=== PATIENT | female | born 1940 | race Caucasian/White ===

== ENCOUNTER 2017-07-10 16:23 | Inpatient (IN) | payer BC, OTHER ==
[~2017-07-10] VITALS: Ht 162.6 cm; Wt 64.0 kg
[2017-07-10 23:10] VITALS: BP 155/80
--- NOTE | 2017-07-10 23:50 | NUR ---
PRE-ADMISSION NOTE VS BP-155/80 T-97.9 P-72 R-16 PA-0/10 SpO2 AT 98% IN RA. PATIENT ALERT AND ORIENTED X 3. AMBULATORY AND GAIT IS STEADY. SPEECH IS CLEAR AND ABLE TO ANSWER QUESTIONS APPROPRIATELY . PATIENT IS ALLERGIC TO NIACIN. PATIENT DENIES SEIZURE HISTORY. SHE STATES SHE'S HERE FOR ALCOHOL AND OPIOID DEPENDENCE. WILL CONTINUE ADMISSION ON 3RD FLOOR.
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
[2017-07-11] MEDS ORDERED: LOPERAMIDE HCL 2 MG CAPSULE PO PRN ×2 (00:30)
[2017-07-11] MEDS ORDERED: MAGNESIUM HYDROXIDE 30 ML LIQUID UDC PO PRN (00:30)
[2017-07-11] MEDS ORDERED: ONDANSETRON ODT 4 MG TAB.RAPDIS SL PRN (00:30)
[2017-07-11] MEDS ORDERED: LORAZEPAM 2 MG/1 ML VIAL IM PRN (00:30)
[2017-07-11] MEDS ORDERED: MIRALAX 17 GM POWD.PACK PO PRN (00:30)
[2017-07-11] MEDS ORDERED: MAG HYDROX/AL HYDROX/SIMETH 30 ML LIQUID UDC PO PRN (00:30)
[2017-07-11] MEDS ORDERED: ONDANSETRON 4 MG/2 ML VIAL IM PRN (00:30)
[2017-07-11] MEDS ORDERED: THIAMINE HCL 200 MG/2 ML VIAL IM ONE (00:30)
[2017-07-11] MEDS ORDERED: DICYCLOMINE HCL 20 MG TABLET PO PRN (00:30)
[2017-07-11] MEDS ORDERED: LORAZEPAM 1 MG TABLET PO PRN ×2 (00:30)
[2017-07-11] MEDS: METHOCARBAMOL 750 MG TABLET PO PRN (01:23)
[2017-07-11] MEDS: diphenhydrAMINE 50 MG CAPSULE PO PRN (01:23)
--- NOTE | 2017-07-11 01:23 | NUR ---
PRN ROBAXIN AND BENADRYL ADMINISTRATION PATIENT C/O BACK ACHE 10/28 AND REQUESTS FOR SLEEP AID. WILL MONITOR FOR EFFECTIVENESS
[2017-07-11] MEDS ORDERED: THIAMINE HCL 200 MG/2 ML VIAL ONE (01:25)
[2017-07-11] MEDS ORDERED: diphenhydrAMINE 50 MG CAPSULE ONE (01:25)
[2017-07-11] MEDS ORDERED: METHOCARBAMOL 750 MG TABLET ONE (01:37)
[2017-07-11] MEDS ORDERED: MELA5TAB PO (01:57)
[2017-07-11] MEDS ORDERED: ESCI20TA37 PO (01:57)
[2017-07-11] MEDS ORDERED: HYDR-3974 PO (01:57)
[2017-07-11] MEDS ORDERED: LORA10TA7 PO (01:57)
[2017-07-11] MEDS ORDERED: ALBU8.5H8 IH (01:57)
[2017-07-11] MEDS ORDERED: NICO4GUM9 BC (01:57)
[2017-07-11] MEDS ORDERED: NICO1PAT45 TD (01:57)
[2017-07-11] MEDS ORDERED: LURA40TA PO (01:57)
[2017-07-11] MEDS ORDERED: TOPI100T38 PO (01:57)
[2017-07-11] MEDS ORDERED: PANT40TA4 PO (01:57)
[2017-07-11 02:14] LABS: BASOPHILS % (AUTO) 0.9 % (0.0-2.0); EOSINOPHILS # (AUTO) 0.2 K/uL (0.0-0.7); EOSINOPHILS % (AUTO) 2.9 % (0.0-7.0); HEMATOCRIT 40.7 % (31.2-41.9); HEMOGLOBIN 14.1 g/dL (10.9-14.3); LYMPHOCYTES # (AUTO) 1.9 K/uL (20.0-40.0); LYMPHOCYTES % (AUTO) 37.3 % (20.5-51.5); MEAN CORPUSCULAR HEMOGLOBIN 32.7 uug (24.7-32.8); MEAN CORPUSCULAR HGB CONC 35 g/dL (32.3-35.6); MEAN CORPUSCULAR VOLUME 94.2 fL (75.5-95.3); MONOCYTES # (AUTO) 0.3 K/uL (2.0-10.0); MONOCYTES % (AUTO) 4.9 % (0.0-11.0); NEUTROPHILS # (AUTO) 2.8 K/uL (1.8-8.9); PLATELET COUNT (AUTO) 233 K/uL (179-408); RED BLOOD CELL COUNT(AUTO) 4.32 MIL/uL (3.63-4.92); WHITE BLOOD COUNT (AUTO) 5.2 K/uL (3.8-11.8)
--- NOTE | 2017-07-11 02:23 | NUR ---
GRAHAM MORA AND LEYLA RE-ASSESSMENT PATIENT IN BED ASLEEP. RESPIRATION EVEN AND UNLABORED. NO FACIAL GRIMACING. WILL CONTINUE TO MONITOR
[2017-07-11 02:34] LABS: ETHANOL 61 MG/DL (0-0)
[2017-07-11 03:04] LABS: ALANINE AMINOTRANSFERASE 15 U/L (14-59); ALKALINE PHOSPHATASE 55 U/L (50-136); AMYLASE 56 U/L (25-115); ASPARTATE AMINOTRANSFERASE 16 U/L (15-37); BILIRUBIN,TOTAL 0.2 mg/dL (0.2-1.0); CARBON DIOXIDE 22 mmol/L (21-32); CHLORIDE 101 mmol/L (98-107); CREATININE 0.9 mg/dL (0.6-1.3); GLUCOSE 108 mg/dL (74-106); LIPASE 160 U/L (73-393); MAGNESIUM 2.1 mg/dL (1.8-2.4); POTASSIUM 3.5 mmol/L (3.5-5.1); TOTAL PROTEIN, SERUM 7.3 g/dL (6.4-8.2); UREA NITROGEN, BLOOD 9 mg/dL (7-18)
[2017-07-11 03:17] LABS: THYROID STIMULATING HORMONE 2.814 mIU/mL (0.358-3.740)
[2017-07-11 03:27] LABS: *AMPHETAMINE, URINE NEGATIVE (NEGATIVE); *BARBITURATE, URINE NEGATIVE (NEGATIVE); *CANNABINOID, URINE NEGATIVE (NEGATIVE); *COCCAINE, URINE NEGATIVE (NEGATIVE); *OPIATE, URINE POSITIVE (NEGATIVE); *PHENCYCLIDINE SCREEN,URINE NEGATIVE (NEGATIVE)
[2017-07-11 04:00] VITALS: BP 137/68
--- NOTE | 2017-07-11 07:28 | NUR ---
END OF SHIFT NOTE PATIENT SLEPT 3 HOURS. FLUID INTAKE OF 296 ML. VOIDED X 2 . NO BM. PATIENT IS A 77 YEAR OLD FEMALE NEWLY ADMITTED FOR SUPERVISED WITHDRAWAL FROM ETOH/OPIOID DEPENDENCE./ PATIENT WAS GIVEN PRN ROBAXIN AND BENADRYL AT 0123 . THIAMINE IM INJECTION GIVEN ON LEFT DELTOID. LAST COWS 5 AND CIWA 4. ON FALL/SEIZURE PRECAUTION. SAFETY MEASURES IN PLACE. CALL LIGHT IN REACH. WILL CONTINUE TO MONITOR.
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
[2017-07-11 08:00] VITALS: BP 126/57
[2017-07-11] MEDS: FOLIC ACID 1 MG TABLET PO SCH (09:30)
[2017-07-11] MEDS: CLONIDINE HCL 0.1 MG TABLET PO PRN (09:30)
[2017-07-11] MEDS: HYDROXYZINE PAMOATE 25 MG CAPSULE PO PRN (09:30)
[2017-07-11] MEDS: THIAMINE HCL 100 MG TABLET PO SCH (09:30)
[2017-07-11] MEDS: MULTIVITAMINS,THERAPEUTIC TABLET PO SCH (09:30)
--- NOTE | 2017-07-11 09:30 | NUR ---
PRN Clonidine 0.1mg PO, Vistaril 25mg PO, Bentyl 20mg PO administered for irritability, chills, anxiety, and abdominal spasms respectively. Encourage client to rise from a position slowly to avoid a drop in blood pressure, to report any dizziness and to increase PO fluid intake as tolerated to facilitate detox. Will continue to monitor.
--- NOTE | 2017-07-11 09:44 | NUR ---
PRN Ativan 1mg PO administered for CIWA 6, anxiety, irritability, stomach upset, nausea and tremors felt, not observed. Call light within reach.
[2017-07-11] MEDS ORDERED: NICOTINE POLACRILEX 4 MG GUM-PK OF TEN BC PRN (10:15)
--- NOTE | 2017-07-11 10:30 | NUR ---
Reassess PRN Rivas KohlitariAngy littlejohn, client reports relief from abdominal spasms, she presents less irritable, but states, "I am still very anxious, I/m not sure I can go through this detox." Encourage client to express feelings, reinforcement is needed. Will continue to monitor.
--- NOTE | 2017-07-11 10:44 | NUR ---
Reassess PRN Ativan 1mg , CIWA 4, client continues to presents with anxious mood, she reports relief from nausea. Call light within reach.
[2017-07-11] MEDS: ESCITALOPRAM OXALATE 10 MG TABLET PO SCH (10:46)
[2017-07-11 12:00] VITALS: BP 121/80
[2017-07-11] MEDS ORDERED: BUPRENORPHINE HCL 2 MG TAB.SUBL SL PRN ×2 (12:00)
[2017-07-11] MEDS ORDERED: PANTOPRAZOLE SODIUM 40 MG TABLET.DR PO ONE (15:00)
[2017-07-11] MEDS: LORAZEPAM 1 MG TABLET PO SCH ×2 (15:45→20:22)
[2017-07-11 16:00] VITALS: BP 119/65
[2017-07-11] MEDS: TOPIRAMATE 100 MG TABLET PO SCH (16:12)
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
[2017-07-11 20:00] VITALS: BP 109/55
[2017-07-11] MEDS: MELATONIN 3 MG TABLET PO SCH (20:22)
[2017-07-11] MEDS: LATUDA 40 MG PO SCH (20:22)
[2017-07-11] MEDS ORDERED: Medication Not On Formulary EA (Melatonin 5 MG) PO SCH (21:00)
[2017-07-12] VITALS: BP 136/69
--- NOTE | 2017-07-12 | NUR ---
COWS AND CIWA DEFERRED COWS and CIWA deferred due to patient asleep; to be assessed and scored while patient is awake. Respirations are even and unlabored, 14/min. Safety measures in place, bed locked in low position, side rails up x2, call light within reach. Will continue to monitor.
--- NOTE | 2017-07-12 04:00 | NUR ---
VITALS REFUSED, COWS AND CIWA DEFERRED Patient refused vital signs. COWS and CIWA deferred due to patient asleep; to be assessed and scored while patient is awake. Respirations are even and unlabored, 14/min. Safety measures in place, bed locked in low position, side rails up x2, call light within reach. Will continue to monitor.
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
[2017-07-12 08:00] VITALS: BP 130/79
[2017-07-12] MEDS: ESCITALOPRAM OXALATE 10 MG TABLET PO SCH (08:23)
[2017-07-12] MEDS: TOPIRAMATE 100 MG TABLET PO SCH ×2 (08:23→16:07)
[2017-07-12] MEDS: LORAZEPAM 1 MG TABLET PO SCH ×3 (08:23→21:32)
[2017-07-12] MEDS: PANTOPRAZOLE SODIUM 40 MG TABLET.DR PO SCH (08:23)
[2017-07-12] MEDS: MULTIVITAMINS,THERAPEUTIC TABLET PO SCH (08:24)
[2017-07-12] MEDS: LORATADINE 10 MG TABLET PO SCH (08:24)
[2017-07-12] MEDS: THIAMINE HCL 100 MG TABLET PO SCH (08:24)
[2017-07-12] MEDS: FOLIC ACID 1 MG TABLET PO SCH (08:24)
[2017-07-12] MEDS ORDERED: TUBERCULIN,PURIF.PROT.DERIV. 5 TU/0.1 ML TEST ID ONE (09:00)
[2017-07-12] MEDS ORDERED: PATIENT MAY USE OWN MED- MD OK PO SCH ×2 (09:00)
[2017-07-12 12:00] VITALS: BP 129/68
[2017-07-12 16:00] VITALS: BP 136/83
--- NOTE | 2017-07-12 17:07 | NUR ---
Therapist prompted client about group times. Client stated she will attend groups tomorrow as she would like to rest today.
--- NOTE | 2017-07-12 18:26 | NUR ---
End of shift note; Patient is AOX4. Patient remained compliant with treatment plan and medication regime. Medications noted to be effective in reducing withdrawal symptoms. Patient's last COWS score is 3 and last CIWA is 1 at 1600. All safety measures secured. Met all needs.
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
[2017-07-12 20:00] VITALS: BP 130/56
[2017-07-12] MEDS: MELATONIN 3 MG TABLET PO SCH (21:32)
[2017-07-12] MEDS: LATUDA 40 MG PO SCH (21:33)
[2017-07-13 04:09] LABS: HEPATITIS B SURFACE AG Negative (Negative)
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
[2017-07-13 08:00] VITALS: BP 127/75
--- NOTE | 2017-07-13 09:20 | NUR ---
Therapist prompted client about group times. Client stated she is "too tired" to attend groups and wants to rest.
[2017-07-13] MEDS: THIAMINE HCL 100 MG TABLET PO SCH (09:30)
[2017-07-13] MEDS: MULTIVITAMINS,THERAPEUTIC TABLET PO SCH (09:30)
[2017-07-13] MEDS: TOPIRAMATE 100 MG TABLET PO SCH ×2 (09:30→17:00)
[2017-07-13] MEDS: LORATADINE 10 MG TABLET PO SCH (09:31)
[2017-07-13] MEDS: FOLIC ACID 1 MG TABLET PO SCH (09:31)
[2017-07-13] MEDS: PANTOPRAZOLE SODIUM 40 MG TABLET.DR PO SCH (09:32)
[2017-07-13] MEDS: LORAZEPAM 1 MG TABLET PO SCH ×3 (09:32→21:03)
[2017-07-13] MEDS: ESCITALOPRAM OXALATE 10 MG TABLET PO SCH (09:32)
[2017-07-13] MEDS: PROAIR INH PRN ×2 (09:37→15:14)
[2017-07-13] MEDS: IBUPROFEN 400 MG TABLET PO PRN ×2 (10:58→15:13)
--- NOTE | 2017-07-13 10:58 | NUR ---
PRN LIDOCAINE 5% PATCH APPLIED TO LOWER BACK, ROBAXIN 750MG PO AND MOTRIN 400MG PO GIVEN FOR BACK PAIN, WILL CONTINUE TO MONITOR AND ASSESS
[2017-07-13] MEDS: METHOCARBAMOL 750 MG TABLET PO PRN (10:59)
[2017-07-13] MEDS: LIDOCAINE 5% PATCH TD SCH (11:00)
--- NOTE | 2017-07-13 11:58 | NUR ---
PRN REASSESS PATIENT STATES THAT LIDOCAINE 5 % PATCH , MOTRIN 400MG PO AND ROBAXIN 750MG PO HAS HELPED ALLEVIATE HER BACK PAIN, WILL CONTINUE TO MONITOR CLOSELY.
[2017-07-13 12:00] VITALS: BP 152/87
[2017-07-13] MEDS: ACETAMINOPHEN 325 MG TABLET PO PRN (15:13)
[2017-07-13] MEDS: NORMAL SALINE NASAL 45 ML BOTTLE NS PRN (15:14)
--- NOTE | 2017-07-13 15:14 | NUR ---
PRN MEDS TYLENOL 650MG PO, MOTRIN 400MG PO , PROAIR INHALER AND SALINE NASAL SPRAY GIVEN TO PATIENT FOR COMPLAINTS OF BACKACHE AND NASAL / CHEST CONGESTION, WILL REASSESS.
[2017-07-13 16:00] VITALS: BP 135/74
--- NOTE | 2017-07-13 16:14 | NUR ---
PRN REASSESS MOTRIN 400MG PO AND TYLENOL 650 MG PO EFFECTIVE IN PAIN RELIEF PER PT REPORT, CONTINUE TO MONITOR
--- NOTE | 2017-07-13 18:58 | NUR ---
End of shift : Patient is a 77 year old female admitted to [facility] on 07/11/17, she is on a 5 day ativan taper to detoxify from alcohol and is tolerating it well. MD ordered Lidocaine 5% patch q12H which was applied to patients lower back today @1100. PRN Robaxin 750 mg po, Tylenol 650 mg po and Motrin 400mg po given on this shift for complaints of back pain, new order for saline nasal spray PRN. Patient complained of nasal congestion today , MD ordered Rapid flu test which is negative and Strep A/B which results are pending. Proair inhaler used twice this shift. Last COWS 3 and CIWA 4 @ 1600. All safety measures in place, bed in low locked position and padded side rails up x 2. Continue MD plan of care.
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
[2017-07-13 20:00] VITALS: BP 146/100
[2017-07-13] MEDS: LATUDA 40 MG PO SCH (21:03)
[2017-07-13] MEDS: MELATONIN 3 MG TABLET PO SCH (21:04)
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
[2017-07-14 08:00] VITALS: BP 150/81
[2017-07-14] MEDS: PANTOPRAZOLE SODIUM 40 MG TABLET.DR PO SCH (08:34)
[2017-07-14] MEDS: MULTIVITAMINS,THERAPEUTIC TABLET PO SCH (08:34)
[2017-07-14] MEDS: TOPIRAMATE 100 MG TABLET PO SCH ×2 (08:35→17:13)
[2017-07-14] MEDS: LORAZEPAM 1 MG TABLET PO SCH ×2 (08:35→20:14)
[2017-07-14] MEDS: LORATADINE 10 MG TABLET PO SCH (08:35)
[2017-07-14] MEDS: THIAMINE HCL 100 MG TABLET PO SCH (08:35)
[2017-07-14] MEDS: FOLIC ACID 1 MG TABLET PO SCH (08:35)
[2017-07-14] MEDS: ESCITALOPRAM OXALATE 10 MG TABLET PO SCH (08:35)
[2017-07-14] MEDS: NORMAL SALINE NASAL 45 ML BOTTLE NS PRN ×2 (08:36→20:13)
[2017-07-14] MEDS: LIDOCAINE 5% PATCH TD SCH (08:36)
[2017-07-14] MEDS: PROAIR INH PRN ×2 (08:36→14:10)
[2017-07-14] MEDS: NICOTINE 14 MG/24HR PATCH TD PRN ×2 (09:35→17:12)
--- NOTE | 2017-07-14 09:35 | NUR ---
PRN NICOTINE PATCH 14MG APPLIED TO LEFT UPPER ARM TO HELP DECREASE NICOTINE CRAVINGS. WILL CONTINUE TO MONITOR
[2017-07-14 12:00] VITALS: BP 139/73
--- NOTE | 2017-07-14 14:10 | NUR ---
PRN PROAIR 1 PUFF OF PROAIR INHALER FOR COMPLAINTS OF THROAT HOARSENESS , WILL RE-EVALUATE
[2017-07-14] MEDS ORDERED: BENZOCAINE/MENTH/CETYLPYRD LOZENGE MM PRN (14:30)
[2017-07-14] MEDS ORDERED: GUAIFENESIN SUGAR FREE 100 MG/5 ML UDC PO PRN (14:30)
--- NOTE | 2017-07-14 15:10 | NUR ---
REASSESS PROAIR INHALER EFFECTIVE FOR PATIENT
[2017-07-14] MEDS: HYDROXYZINE PAMOATE 25 MG CAPSULE PO PRN (15:37)
[2017-07-14] MEDS: METHOCARBAMOL 750 MG TABLET PO PRN (15:38)
--- NOTE | 2017-07-14 15:38 | NUR ---
PRN MEDS ROBAXIN 750 MG PO AND VISTARIL 25MG PO GIVEN FOR COMPLAINTS OF BACK ACHE AND RESTLESSNESS, WILL REASSESS
[2017-07-14 16:00] VITALS: BP 160/81
--- NOTE | 2017-07-14 16:38 | NUR ---
PRN REASSESS 750MG ROBAXIN PO AND 25MG VISTARIL EFFECTIVE PER PATIENT REPORT , SHE WAS ABLE TO RELAX AND BACKACHE IS LESS
[2017-07-14] MEDS: CLONIDINE HCL 0.1 MG TABLET PO PRN (17:12)
--- NOTE | 2017-07-14 17:12 | NUR ---
PRN CLONIDINE 0.1 MG PO GIVEN FOR INCREASED BP 160/81, NEW NICOTINE PATCH APPLIED, WILL CONTINUE TO MONITOR
--- NOTE | 2017-07-14 18:12 | NUR ---
REASSESS NICOTINE PATCH REMOVED WAS INCREASING PATIENTS ANXIETY, CLONIDINE EFFECTIVE FOR BP , NOW 145/78, WILL CONTINUE TO MONITOR.
--- NOTE | 2017-07-14 18:39 | NUR ---
End of shift : Patient is a 77 year old female admitted to [facility] on 07/11/17, she is on a 5 day ativan taper to detoxify from alcohol and is tolerating it well. MD ordered Lidocaine 5% patch q12H which was applied to patients lower back today @0900. PRN Robaxin 750 mg po, Vistaril 25mg po and 0.1mg clonidine po given on this shift for complaints of back pain and irritability . Strep results still pending. Proair inhaler used twice this shift. Last COWS 5 and CIWA 6 @ 1600. Patient stayed in her room most of the day refusing to attend any groups. All safety measures in place, bed in low locked position and padded side rails up x 2. Continue MD plan of care.
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
[2017-07-14 20:00] VITALS: BP 120/75
[2017-07-14] MEDS: IBUPROFEN 400 MG TABLET PO PRN (20:14)
[2017-07-14] MEDS: LATUDA 40 MG PO SCH (20:14)
[2017-07-14] MEDS: MELATONIN 3 MG TABLET PO SCH (20:14)
--- NOTE | 2017-07-14 20:30 | NUR ---
PRN MOTRIN Pt. complains of moderate headache, 6/10. PRN MOTRIN given as ordered. Safety measures in place : bed on lowest position with side rails x2 up for safety, call light within reach. Will continue to monitor closely and offer help.
--- NOTE | 2017-07-14 21:24 | NUR ---
RE-ASSESSMENT VIV Pt. is sleeping, RR=16 unlabored and even. Safety measures in place : bed on lowest position with side rails x2 up for safety, call light within reach. Will continue to monitor closely and offer help.
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
--- NOTE | 2017-07-15 07:30 | NUR ---
START OF SHIFT Endorse rcvd from ongoing nurse, client is in room, she is a/o to name, place and situation, she presents with anxious mood, flat affect, skin moist, flushed face, and stomach cramps. Client reports chills/cold, joint aches, and decreased in appetite. She denies any SI/HI. Encourage client to increase PO fluid as tolerated. Encourage client to attend group therapy for skills to maintain sober. 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 She is on 5 day Ativan taper, (Last day). Last CIWA 4/COWS 4 @ 1999. PRN Motrin 400mg Po for pain, noted effective. Client slept 8 hrs. Allergy to Niacin, Full code, regular diet. She is on seizure precautions. Bilingual Trainer rails x 2 up/padded. Call light within reach.
[2017-07-15 08:06] VITALS: BP 140/90
[2017-07-15] MEDS: TOPIRAMATE 100 MG TABLET PO SCH ×2 (08:55→17:15)
[2017-07-15] MEDS: LIDOCAINE 5% PATCH TD SCH (08:55)
[2017-07-15] MEDS: PANTOPRAZOLE SODIUM 40 MG TABLET.DR PO SCH (08:55)
[2017-07-15] MEDS: THIAMINE HCL 100 MG TABLET PO SCH (08:55)
[2017-07-15] MEDS: LORATADINE 10 MG TABLET PO SCH (08:55)
[2017-07-15] MEDS: FOLIC ACID 1 MG TABLET PO SCH (08:55)
[2017-07-15] MEDS: ESCITALOPRAM OXALATE 10 MG TABLET PO SCH (08:55)
[2017-07-15] MEDS: MULTIVITAMINS,THERAPEUTIC TABLET PO SCH (08:55)
[2017-07-15] MEDS ORDERED: LORAZEPAM 1 MG TABLET PO SCH (09:00)
[2017-07-15] MEDS ORDERED: DIPH50CA37 PO (11:29)
[2017-07-15] MEDS ORDERED: METH-406 PO (11:29)
[2017-07-15] MEDS ORDERED: IBUP-1953 PO (11:29)
[2017-07-15] MEDS ORDERED: LORA-114 PO (11:29)
[2017-07-15] MEDS ORDERED: LIDO30AD10 TD (11:29)
[2017-07-15] MEDS ORDERED: PANT40TA2 PO (11:29)
[2017-07-15] MEDS ORDERED: HYDR-3895 PO (11:29)
[2017-07-15 12:00] VITALS: BP 139/87
[2017-07-15] MEDS: ACETAMINOPHEN 325 MG TABLET PO PRN (13:59)
[2017-07-15] MEDS: METHOCARBAMOL 750 MG TABLET PO PRN (13:59)
--- NOTE | 2017-07-15 13:59 | NUR ---
PRN Robaxin 750mg PO, Tylenol 650mg PO administered for low back aches and myalgia 10/28. Call light within reach.
--- NOTE | 2017-07-15 14:59 | NUR ---
Reassess PRN Robaxin 750mg PO, Tylenol 650mg PO, client reports relief from low back aches and myalgia 06/30, but tolerable. Call light within reach.
[2017-07-15] MEDS: PROAIR INH PRN (15:24)
--- NOTE | 2017-07-15 15:24 | NUR ---
PRN Proair HFA INH 1 puff for dyspnea, Velma nasal spray NS 1 spray in each nostril for allergic rhinitis administered. Will continue to monitor. Call light within reach.
[2017-07-15] MEDS: NORMAL SALINE NASAL 45 ML BOTTLE NS PRN (15:25)
[2017-07-15 16:02] VITALS: BP 119/65
--- NOTE | 2017-07-15 16:27 | NUR ---
Reassess PRN Proair HFA INH, [place] nasal spray NS, client reports breathing easier, relief from runny nose, and congestion. Call light within reach.
--- NOTE | 2017-07-15 19:10 | NUR ---
Start of Shift Patient Received. Patient is in activities room participating in a group meeting. Patient has completed a modified Ativan taper and is set for discharge tomorrow. Per endorsement, patient was given PRN Robaxin, Tylenol, ProAir, and nasal spray with medications noted to be effective. Patient was noted to not be compliant with group therapy despite encouragement from multiple staff members. Last noted CIWA 5 and COWS 4. All needs attended to promptly. Will continue plan of care as ordered.
--- NOTE | 2017-07-15 19:21 | NUR ---
END OF SHIFT Client is in room, she is a/o to name, place and situation, she continues to present with anxious mood, flat affect. She denies any SI/HI. Adequate PO fluid intake 3193mL, void x 5. Client is not compliant with group therapy. 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 She completed 5 day Ativan taper. Last CIWA 5/ 4 @ 1600. PRN Robaxin 750mg PO, Tylenol 650mg PO administered for low back aches and myalgia 10/28, Proair HFA INH 1 puff for dyspnea, [place] nasal spray NS 1 spray in each nostril for allergic rhinitis, noted effective. Allergy to Niacin, Full code, regular diet. She is on seizure precautions. Fusing Line Inspector rails x 2 up/padded. Call light within reach.
[2017-07-15 20:21] VITALS: BP 146/94
[2017-07-15] MEDS: MELATONIN 3 MG TABLET PO SCH (20:23)
[2017-07-15] MEDS: LATUDA 40 MG PO SCH (20:23)
[2017-07-15] MEDS: diphenhydrAMINE 50 MG CAPSULE PO PRN (21:07)
--- NOTE | 2017-07-15 21:10 | NUR ---
PRN Medication Administration Patient is noted verbalizing inability of falling asleep. PRN Benadryl administered as per ordered. Will continue to monitor.
--- NOTE | 2017-07-15 22:10 | NUR ---
PRN Medication Reassessment Patient is noted in bed sleeping. Breathing even and non labored. No signs of restlessness or discomfort noted. PRN Benadryl noted to be effective. Will continue to monitor.
[2017-07-16 04:20] VITALS: BP 133/86
--- NOTE | 2017-07-16 07:17 | NUR ---
End of Shift Patient is in bed sleeping but easily aroused to verbal stimuli. Breathing even and non labored. Patient is set for discharge this morning 07/16/17 for discharge. Patient was given PRN Benadryl for sleep. Patient noted to sleep 4 hours. Patient verbalized of being "very excited to get home." Last noted CIWA 5 and COWS 4. All needs attended to promptly. Will endorse to continue plan of care as ordered.
--- NOTE | 2017-07-16 07:41 | NUR ---
START OF SHIFT Endorse rcvd from ongoing nurse, client is in room, she is a/o to name, place and situation, she presents with anxious mood, she states, "I'm going home, I miss my family very much." She denies any SI/HI. Client is being discharge this afternoon home. Encourage client to get a sponsor and attend AA meeting for skills to maintain sober. Encourage client to increase PO fluid as tolerated. 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 She completed 5 day Ativan taper. Last CIWA 4 @ 1999. PRN Benadryl 50mg PO for inability to sleep, she slept 4 hrs. Allergy to Niacin, Full code, regular diet. She is on seizure precautions. Business Development Officer rails x 2 up/padded. Call light within reach.
[2017-07-16 08:31] VITALS: BP 139/78
[2017-07-16] MEDS: TOPIRAMATE 100 MG TABLET PO SCH (09:10)
[2017-07-16] MEDS: LORATADINE 10 MG TABLET PO SCH (09:10)
[2017-07-16] MEDS: FOLIC ACID 1 MG TABLET PO SCH (09:10)
[2017-07-16] MEDS: THIAMINE HCL 100 MG TABLET PO SCH (09:10)
[2017-07-16] MEDS: PANTOPRAZOLE SODIUM 40 MG TABLET.DR PO SCH (09:11)
[2017-07-16] MEDS: LIDOCAINE 5% PATCH TD SCH (09:11)
[2017-07-16] MEDS: MULTIVITAMINS,THERAPEUTIC TABLET PO SCH (09:11)
[2017-07-16] MEDS: ESCITALOPRAM OXALATE 10 MG TABLET PO SCH (09:11)
[2017-07-16 12:00] VITALS: BP 159/88
[2017-07-16 12:12] VITALS: BP 159/88
[2017-07-16] MEDS: CLONIDINE HCL 0.1 MG TABLET PO PRN (12:12)
--- NOTE | 2017-07-16 12:12 | NUR ---
PRN Clonidine 01.mg PO, Vistaril 25mg PO administered for irritability, BP 159/88, P 91, and anxiety. Call light within reach.
[2017-07-16] MEDS: HYDROXYZINE PAMOATE 25 MG CAPSULE PO PRN (12:13)
--- NOTE | 2017-07-16 13:12 | NUR ---
Reassess PRN Clonidine 01.mg, Vistaril 25mg effective, client appears less irritable and anxious, BP 137/81, P 81. Call light within reach.
--- NOTE | 2017-07-16 13:20 | NUR ---
Discharge note Client was admitted for withdrawal from alcohol. Client completed 5 day Ativan taper. Client has a recent CIWA 4/ 4. Client VS are WNL. Client LBM was 07/16/17. Client denies any SI/HI. Client verbalized her understanding of the discharge instructions. Client has no complaints at this time. Client discharge instructions, prescriptions, medications,and all belongings returned to her. All needs addressed at this time. Client ambulated off of unit, she left facility via private car with her Chad for home.
== END 2017-07-16 13:20 | disposition home or self-care (01) | DRG 895 ==
LOC: SRC 07-11 00:01
PROVIDERS: ADMIT Internal Medicine; ATTEND Internal Medicine
PROC: HZ2ZZZZ Detoxification Services for Substance Abuse Treatment (ICD-10-PCS; principal; 2017-07-11)
PROC: HZ31ZZZ Individual Counseling for Substance Abuse Treatment, Behavioral (ICD-10-PCS; 2017-07-13)
DX: F10.230 Alcohol dependence with withdrawal, uncomplicated (principal); F31.30 Bipolar disorder, current episode depressed, mild or moderate severity, unspecified; I15.9 Secondary hypertension, unspecified; E87.1 Hypo-osmolality and hyponatremia; Y90.9 Presence of alcohol in blood, level not specified; F11.10 Opioid abuse, uncomplicated; F17.210 Nicotine dependence, cigarettes, uncomplicated; J45.20 Mild intermittent asthma, uncomplicated; Z96.651 Presence of right artificial knee joint; Z90.710 Acquired absence of both cervix and uterus; Z81.1 Family history of alcohol abuse and dependence; F41.9 Anxiety disorder, unspecified; Z79.899 Other long term (current) drug therapy; R73.9 Hyperglycemia, unspecified; M54.5 Low back pain; G89.29 Other chronic pain; K21.9 Gastro-esophageal reflux disease without esophagitis; J02.9 Acute pharyngitis, unspecified
CPT/HCPCS: 36415; 80307; 80361; 83690; 83735; 84443; 85025; 86403; 86580; 86592; 86705; 86803; 87070; 87340; 87400; 87806; A4663; G0480; J3411; Q0163